=== PATIENT | female | born 2000 | race Caucasian/White ===

== ENCOUNTER 2020-03-01 20:15 | Emergency (ER) | payer SELFPAY ==
[~2020-03-01] VITALS: Ht 172.7 cm; Wt 104.5 kg
[2020-03-01 20:24] VITALS: TEMP 98
[2020-03-01 20:49] LABS: COLLECTION METHOD CLEAN CATCH
[2020-03-01 20:55] LABS: MUCOUS Present /lpf; PH 5 (5-8); SQUAMOUS EPITHELIAL 0-2 /hpf; URINE APPEARANCE Clear; URINE BACTERIA Rare /hpf; URINE BILIRUBIN Negative (NEGATIVE); URINE BLOOD Negative (NEGATIVE); URINE COLOR Yellow; URINE GLUCOSE Negative (NEGATIVE); URINE KETONE Negative (NEGATIVE); URINE LEUKOCYTE ESTERASE Negative (NEGATIVE); URINE NITRATE Negative (NEGATIVE); URINE PROTEIN(semi-quant) Negative (NEGATIVE); URINE RBC 0-2 /hpf; URINE UROBILINOGEN Negative (NEGATIVE)
[2020-03-01 21:42] LABS: BASO # 0.1 (0.0-0.2); BASO % 0.4 % (0.0-2.0); EOS # 0.2 (0.0-0.7); EOS % 1.1 % (0-4.0); GRAN # 8.5 (1.4-6.5); HEMATOCRIT 37.6 % (35.0-45.0); HEMOGLOBIN 11.9 g/dl (12.0-15.0); LYMPH # 3.9 (1.2-3.4); LYMPH % 28.8 % (20.0-51.0); MEAN CELL VOLUME 83 fl (80.0-95.0); MEAN CORPUSCULAR HEMOGLOBIN 26 pg (26.0-32.0); MEAN CORPUSCULAR HGB CONC 32 g/dl (33.0-37.0); MONO % 7.3 % (1.7-9.3); PLATELET COUNT 292 K/mm3 (130-400); RED BLOOD COUNT 4.56 M/mm3 (4.10-5.30); REDCELL DISTRIBUTION WIDTH-CV 15.1 % (11.5-14.5)
[2020-03-01 21:48] LABS: ALBUMIN 4.3 gm/dL (3.5-5.0); BILIRUBIN,TOTAL 0.3 mg/dL (0.0-1.0); CALCIUM 9.4 mg/dL (8.4-10.2); CREATININE, serum 0.66 (0.52-1.25); POTASSIUM 3.6 mmol/L (3.4-5.0); TOTAL PROTEIN 8.3 gm/dL (6.4-8.2)
[2020-03-01 23:08] VITALS: BP 136/62; PULSE 92
== END 2020-03-01 23:08 | disposition home or self-care (01) ==
LOC: COL.ER 20:15
PROVIDERS: Emergency Medicine
DX: O26.891 Other specified pregnancy related conditions, first trimester (principal); R10.2 Pelvic and perineal pain; O99.331 Smoking (tobacco) complicating pregnancy, first trimester; F17.210 Nicotine dependence, cigarettes, uncomplicated; Z3A.01 Less than 8 weeks gestation of pregnancy
CPT/HCPCS: J7030

== ENCOUNTER 2023-07-22 10:51 | Emergency (ER) | payer MEDICAID ==
[~2023-07-22] VITALS: Ht 172.7 cm; Wt 100.0 kg
[~2023-07-22 10:51] MED LIST: VALTREX1 GM PO
[2023-07-22 11:05] VITALS: TEMP 98.1
[2023-07-22 11:45] LABS: COLLECTION METHOD CLEAN CATCH
[2023-07-22 11:54] LABS: BASO % 0.3 % (0.0-2.0); EOS # 0.1 K/mm3 (0.0-0.7); EOS % 1.4 % (0.0-4.0); GRAN # 3.1 K/mm3 (1.4-6.5); GRAN % 41.8 % (42.2-75.2); HEMATOCRIT 40.7 % (37.0-47.0); HEMOGLOBIN 12.5 g/dl (12.5-16.0); LYMPH # 3.5 K/mm3 (1.2-3.4); LYMPH % 48.3 % (20.0-51.0); MEAN CELL VOLUME 83 fl (80.0-100.0); MEAN CORPUSCULAR HEMOGLOBIN 25 pg (27-31); MEAN CORPUSCULAR HGB CONC 31 g/dl (33.0-37.0); MEAN PLATELET VOLUME 10.8 fl (7.4-10.4); MONO # 0.6 K/mm3 (0.1-0.6); MONO % 7.9 % (1.7-9.3); PLATELET COUNT 217 K/mm3 (130-400); RED BLOOD COUNT 4.92 M/mm3 (4.10-5.30)
[2023-07-22 12:04] LABS: PH 5.5 (5.0-8.5); URINE APPEARANCE Clear (CLEAR/HAZY); URINE BLOOD 2+ (NEGATIVE); URINE COLOR Yellow (YELLOW); URINE GLUCOSE Negative (NEGATIVE); URINE KETONE Negative (NEGATIVE); URINE NITRATE Negative (NEGATIVE); URINE PROTEIN(semi-quant) Negative (NEGATIVE); URINE UROBILINOGEN 0.2 E.U/dL (0.2-1.0)
[2023-07-22 12:05] LABS: ALBUMIN 3.7 gm/dL (3.5-5.0); BILIRUBIN,TOTAL 0.3 mg/dL (0.2-1.2); C-REACTIVE PROTEIN 1.01 mg/dL (0.00-0.50); CALCIUM 9.2 mg/dL (8.4-10.2); CREATININE, serum 0.74 mg/dL (0.57-1.11); POTASSIUM 3.5 mmol/L (3.5-4.5); TOTAL PROTEIN 7.8 gm/dL (6.2-8.1)
[2023-07-22 12:11] LABS: SQUAMOUS EPITHELIAL 0-2 /hpf (0-10)
[2023-07-22 12:13] LABS: URINE BACTERIA None Seen /hpf (NONE SEEN)
[2023-07-22 13:45] VITALS: BP 130/76; PULSE 75
== END 2023-07-22 13:44 | disposition home or self-care (01) ==
LOC: COL.ER 10:51
PROVIDERS: Nurse Practitioner
DX: R10.9 Unspecified abdominal pain (principal); Z28.310 Unvaccinated for COVID-19
CPT/HCPCS: J1885; J2405; J7030

== ENCOUNTER 2023-11-03 18:45 | Emergency (ER) | payer MEDICAID ==
[~2023-11-03] VITALS: Ht 172.7 cm; Wt 90.9 kg
[2023-11-03 19:01] VITALS: TEMP 99
[2023-11-03] MEDS ORDERED: Acetaminophen 500 MG TAB PO ONE (21:45)
[2023-11-03] MEDS ORDERED: Ketorolac 30 MG/ML VIAL IM ONE (22:45)
[2023-11-03 23:06] VITALS: BP 124/78; PULSE 64
== END 2023-11-03 23:06 | disposition home or self-care (01) ==
LOC: COL.ER 18:45
DX: R51.9 Headache, unspecified (principal)
CPT/HCPCS: J1885